=== PATIENT | female | born 1995 | race African-American/Black ===

== ENCOUNTER 2022-02-09 09:58 | Emergency (ER) | payer OTHER ==
[2022-02-09 10:04] VITALS: BP 108/64; PULSE 87; RESP 18; TEMP 97.7; BMI 20.9
[2022-02-09 11:59] LABS: BASO % 1.2 % (0-2.0); EOS % 1.6 % (0-4.5); HEMATOCRIT 37.3 % (32.4-45.2); HEMOGLOBIN 12.5 GM/dL (10.7-15.3); LYMPH % 42.4 % (8-40); MCH 31.4 pg (25.7-33.7); MCHC 33.6 g/dl (32.0-36.0); MEAN CELL VOLUME 93.6 fl (80-96); MEAN PLT VOLUME 8.7 fl (7.5-11.1); MONO % 8.5 % (3.8-10.2); NEUT % 46.3 % (42.8-82.8); PLATELET COUNT 240 10^3/uL (134-434); RBC 3.98 M/mm3 (3.60-5.2); RDW 14.6 % (11.6-15.6); WHITE BLOOD COUNT 5.2 K/mm3 (4.0-10.0)
[2022-02-09 12:03] LABS: EPI CELLS 21 /uL (0-25.1); HYALINE CASTS 4 /uL (0-3.1); URINE APPEARANCE CLOUDY; URINE BACTERIA 293 /uL (0-1359); URINE BILIRUBIN 1+ (NEGATIVE); URINE COLOR DK YELLOW; URINE GLUCOSE (UA) NEGATIVE (NEGATIVE); URINE KETONE TRACE (NEGATIVE); URINE LEUK ESTERASE TRACE (NEGATIVE); URINE NITRITE NEGATIVE (NEGATIVE); URINE PROTEIN TRACE (NEGATIVE); URINE RBC 5 /uL (0-23.9); URINE WBC 18 /uL (0-25.8)
[2022-02-09 12:26] LABS: CALCIUM 9.4 mg/dL (8.5-10.1)
[2022-02-09 12:27] LABS: ALBUMIN 4.3 g/dl (3.4-5.0); BLOOD UREA NITROGEN 8.3 mg/dL (7-18)
[2022-02-09] MEDS ORDERED: KETOROLAC TROMETHAMINE 30 MG/1 ML VIAL IVPUSH ONE (12:27)
[2022-02-09] MEDS ORDERED: KETOROLAC TROMETHAMINE 30 MG/1 ML VIAL ONE (12:27)
[2022-02-09 12:30] LABS: CREATININE 0.7 mg/dL (0.55-1.3)
[2022-02-09] MEDS ORDERED: KETOROLAC TROMETHAMINE 30 MG/1 ML VIAL IM ONE (12:30)
[2022-02-09 12:31] LABS: BILIRUBIN,TOTAL 1.3 mg/dL (0.2-1); TOT PROT 7.8 g/dl (6.4-8.2)
== END 2022-02-09 13:13 | disposition home or self-care (01) ==
LOC: JER 09:58
PROC: 3E0233Z Introduction of Anti-inflammatory into Muscle, Percutaneous Approach (ICD-10-PCS; principal; 2022-02-09)
DX: R59.0 Localized enlarged lymph nodes (principal)
CPT/HCPCS: 36415; 80053; 81003; 84703; 85025; 87086; 99284-25

== ENCOUNTER 2022-04-19 18:00 | Emergency (ER) | payer OTHER ==
[2022-04-19 18:20] VITALS: BP 101/56; PULSE 72; RESP 18; TEMP 98.1; BMI 20.9
== END 2022-04-19 20:22 | disposition home or self-care (01) ==
LOC: JERFT 18:00
DX: M79.672 Pain in left foot (principal)
CPT/HCPCS: 73630-TC-LT; 84703; 99284-25